=== PATIENT | female | born 1950 | race Caucasian/White ===

== ENCOUNTER → 2019-02-01 | Outpatient (CLI) | payer MEDICARE, BC ==
--- NOTE | 2019-02-01 14:22 | US ---
EXAMINATION TYPE: US thyroid st tissue head/neck DATE OF EXAM: 02/01/2019 COMPARISON: NONE CLINICAL HISTORY: 68-year-old female E04.1 THYROID NODULE. Patient states enlarged thyroid. On meds. TECHNIQUE: Multiple sonographic images of the thyroid gland are obtained. FINDINGS: GLAND SIZE: Right Lobe: 4.6 x 2.6 x 1.8 cm Overall Parenchyma: heterogenous Left Lobe: 4.8 x 2.1 x 2.1 cm Overall Parenchyma: heterogeneous Isthmus Thickness: 0.3 cm NODULES RIGHT: # of nodules measured on right: 4. Multiple nodules visualized but the largest are measured 1. 2.4 X 1.9 x 1.6 cm hypoechoic solid nodule at the mid pole with well-defined margins; interrupte d peripheral calcification. This nodule is wider than tall and shows intranodular vascularity. Prior size: No prior 2. 0.8 X 0.8 x 0.6 cm mixed nodule at the lower pole with well-defined margins. This nodule is wide r than tall and shows intranodular vascularity. Prior size: No prior 3. 0.8 X 0.9 x 0.8 cm hypoechoic solid nodule at the lower pole with well-defined margins; interrupt ed peripheral calcification. This nodule is wider than tall and shows no intranodular vascularity. Prior size: No prior 4. 0.8 X 0.7 x 0.7 cm echogenic nodule at the upper pole with well-defined margins. This nodule is wide as tall and shows intranodular vascularity. Prior size: No prior LEFT: # of nodules measured on left: 3. Multiple nodules visualized, largest measured 1. 2.0 X 1.6 x 1.7 cm hypoechoic solid nodule at the mid pole with well-defined margins. This nodu le is taller than wide and shows intranodular vascularity. Prior size: No prior 2. 1.3 X 1.1 x 1.0 cm hypoechoic solid nodule at the upper pole with well-defined margins. This no dule is wider than tall and shows intranodular vascularity. Prior size: No prior 3. 0.9 X 1.4 x 0.8 cm hypoechoic solid nodule at the lower pole with well-defined margins; interrupt ed peripheral calcification. This nodule is wider than tall and shows intranodular vascularity. Prior size: No prior ISTHMUS: # of nodules measured in the isthmus: 0 Bilateral neck scanned, no evidence of lymphadenopathy. IMPRESSION: 1. Multinodular thyroid gland, likely multinodular goiter. 2. Dominant nodule on the right measures 2.4 cm and is solid at the midpole. 3. 3 dominant nodules on the left measure 2.0 cm, 1.4 cm, and 1.3 cm.
== END | disposition home or self-care (01) ==
LOC: RADUSWWP 09:32
PROVIDERS: ATTEND Internal Medicine Endocrinology, Diabetes & Metabolism
DX: E04.2 Nontoxic multinodular goiter (principal)
CPT/HCPCS: 76536

== ENCOUNTER → 2019-02-12 | Outpatient (CLI) | payer MEDICARE, BC ==
[2019-02-12 17:39] LABS: African American GFR (CKD) 88.4 (60.0-200.0); Albumin 4.4 g/dL (3.80-4.90); Albumin/Globulin Ratio 2.59 (1.60-3.17); Anion Gap 7.9 mmol/L (4.00-12.00); BUN/Creat Ratio 33.75 Ratio (12.00-20.00); Carbon Dioxide 29.1 mmol/L (21.6-31.8); Chol/HDL Ratio 3.68; Globulin 1.7 g/dL (1.6-3.3); LDL Cholesterol,Calculated 55.8 mg/dL (0.0-131.0); Potassium 4.2 mmol/L (3.5-5.5); Total Bilirubin 0.4 mg/dL (0.2-1.2); Total Protein 6.1 g/dL (6.2-8.2); VLDL Calculation 46.2 mg/dL (5.00-40.00)
[2019-02-12 19:18] LABS: Hemoglobin A1C 7.9 % (4.0-6.0)
== END | disposition home or self-care (01) ==
LOC: LABWHC1 07:47
PROVIDERS: ATTEND Internal Medicine Endocrinology, Diabetes & Metabolism
DX: E11.65 Type 2 diabetes mellitus with hyperglycemia (principal)
CPT/HCPCS: 36415; 80053; 80061; 82043; 82570; 83036; 84443

== ENCOUNTER → 2019-06-21 | Outpatient (CLI) | payer MEDICARE, BC ==
[2019-06-21 15:29] LABS: African American GFR (CKD) 76.7 (60.0-200.0); Albumin 4.4 g/dL (3.80-4.90); Albumin/Globulin Ratio 2.1 (1.60-3.17); Anion Gap 7.2 mmol/L (4.00-12.00); Calcium 9.7 mg/dL (8.7-10.3); Carbon Dioxide 29.8 mmol/L (21.6-31.8); Chol/HDL Ratio 2.79; Globulin 2.1 g/dL (1.6-3.3); LDL Cholesterol,Calculated 59.4 mg/dL (0.0-131.0); Non-African American GFR(CKD) 66.2 (60.0-200.0); Potassium 4.9 mmol/L (3.5-5.5); Total Bilirubin 0.4 mg/dL (0.3-1.2); Total Protein 6.5 g/dL (6.2-8.2); VLDL Calculation 33.6 mg/dL (5.00-40.00)
[2019-06-21 15:38] LABS: T4, Free (Free Thyroxine) 1.7 ng/dL (0.80-1.80)
[2019-06-21 16:17] LABS: Hemoglobin A1C 7.2 % (4.0-6.0)
[2019-06-21 17:28] LABS: Urine Creatinine 79.5 mg/dL
== END | disposition home or self-care (01) ==
LOC: LABWHC1 08:02
PROVIDERS: ATTEND Internal Medicine Endocrinology, Diabetes & Metabolism
DX: E04.2 Nontoxic multinodular goiter (principal); E11.65 Type 2 diabetes mellitus with hyperglycemia
CPT/HCPCS: 36415; 80053; 80061; 82043; 82570; 83036; 84439; 84443

== ENCOUNTER → 2020-06-02 | Outpatient (CLI) | payer MEDICARE, BC ==
[2020-06-02 15:33] LABS: African American GFR (CKD) 76.1 (60.0-200.0); Albumin 4.6 g/dL (3.80-4.90); Albumin/Globulin Ratio 2.19 (1.60-3.17); BUN/Creat Ratio 25.56 Ratio (12.00-20.00); Calcium 9.3 mg/dL (8.7-10.3); Chol/HDL Ratio 2.96; Globulin 2.1 g/dL (1.6-3.3); LDL Cholesterol,Calculated 52.4 mg/dL (0.0-131.0); Non-African American GFR(CKD) 65.7 (60.0-200.0); Potassium 4.3 mmol/L (3.5-5.5); Total Bilirubin 0.5 mg/dL (0.3-1.2); Total Protein 6.7 g/dL (6.2-8.2); VLDL Calculation 43.6 mg/dL (5.00-40.00)
[2020-06-02 15:41] LABS: T4, Free (Free Thyroxine) 1.6 ng/dL (0.80-1.80)
[2020-06-02 17:53] LABS: Hemoglobin A1C 7.6 % (4.0-6.0)
[2020-06-02 21:45] LABS: Urine Creatinine 75.8 mg/dL
== END | disposition home or self-care (01) ==
LOC: LABWHC1 10:24
PROVIDERS: ATTEND Internal Medicine Endocrinology, Diabetes & Metabolism
DX: E11.65 Type 2 diabetes mellitus with hyperglycemia (principal); E04.2 Nontoxic multinodular goiter
CPT/HCPCS: 36415; 80053; 80061; 82043; 82570; 83036; 84439; 84443

== ENCOUNTER → 2020-11-16 | Outpatient (CLI) | payer MEDICARE, BC ==
[2020-11-17 01:12] LABS: Basophils # (A) 0.04 X 10*3/uL (0.00-0.10); Basophils % (A) 0.4 %; HCT 38.4 % (37.2-46.3); Lymphocytes # (A) 2.32 X 10*3/uL (0.90-5.00); MCH 29.6 pg (27.0-32.0); MCHC 31.3 g/dL (32.0-37.0); MCV 94.6 fL (80.0-97.0); Mean Platelet Volume 11.4 fL (9.5-12.2); Monocytes # (A) 0.76 X 10*3/uL (0.20-1.00); Monocytes % (A) 7.9 %; Neutrophils # (A) 6.41 X 10*3/uL (1.80-7.70); Neutrophils % (A) 66.4 %; Platelet Count 276 X 10*3/uL (140-440); RBC 4.06 X 10*6/uL (4.10-5.20); RDW 14.2 % (11.5-14.5); WBC 9.66 X 10*3/uL (4.50-10.00)
[2020-11-17 04:46] LABS: Erythrocyte Sedimentation Rate 26 mm/Hr (0-30)
== END | disposition home or self-care (01) ==
LOC: LABWHC1 15:47
PROVIDERS: ATTEND Podiatrist Foot & Ankle Surgery
DX: M19.90 Unspecified osteoarthritis, unspecified site (principal); B99.9 Unspecified infectious disease
CPT/HCPCS: 36415; 84550; 85025; 85652; 86038; 86140; 86431

== ENCOUNTER → 2021-03-14 | Outpatient (CLI) | payer MEDICARE, BC ==
[2021-03-14 19:09] LABS: ALT 16 U/L (8-44); AST 13 U/L (13-35); African American GFR (CKD) 86.9 (60.0-200.0); Albumin 4.2 g/dL (3.8-4.9); Albumin/Globulin Ratio 1.94 (1.60-3.17); Alkaline Phosphatase 63 U/L (41-126); BUN/Creat Ratio 23.57 Ratio (12.00-20.00); Blood Urea Nitrogen 18.9 mg/dL (9.0-27.0); Calcium 9.3 mg/dL (8.7-10.3); Carbon Dioxide 25.6 mmol/L (20.0-27.5); Chloride 104 mmol/L (96-109); Chol/HDL Ratio 3.37 Ratio; Globulin 2.2 g/dL (1.6-3.3); Glucose 118 mg/dL (70-110); LDL Cholesterol,Calculated 66.3 mg/dL (0.0-131.0); Sodium 140 mmol/L (135-145); Total Protein 6.3 g/dL (6.2-8.2)
[2021-03-14 23:07] LABS: Urine Creatinine 60.5 mg/dL (28.0-217.0)
== END | disposition home or self-care (01) ==
LOC: LABWHC1 10:50
PROVIDERS: ATTEND Internal Medicine Endocrinology, Diabetes & Metabolism
DX: E11.65 Type 2 diabetes mellitus with hyperglycemia (principal)
CPT/HCPCS: 36415; 80053; 80061; 82043; 82570; 83036; 84443

== ENCOUNTER → 2022-02-21 | Outpatient (CLI) | payer MEDICARE, BC ==
[2022-02-21 19:45] LABS: ALT 14 U/L (8-44); AST 15 U/L (13-35); African American GFR (CKD) 75.1 (60.0-200.0); Albumin 4.4 g/dL (3.8-4.9); Albumin/Globulin Ratio 1.76 (1.60-3.17); Alkaline Phosphatase 55 U/L (41-126); BUN/Creat Ratio 22.89 Ratio (12.00-20.00); Blood Urea Nitrogen 20.6 mg/dL (9.0-27.0); Calcium 9.8 mg/dL (8.7-10.3); Carbon Dioxide 26.5 mmol/L (20.0-27.5); Chloride 106 mmol/L (96-109); Globulin 2.5 g/dL (1.6-3.3); Glucose 81 mg/dL (70-110); LDL Cholesterol,Calculated 73.6 mg/dL (0.0-131.0); Non-African American GFR(CKD) 64.8 (60.0-200.0); Potassium 5.2 mmol/L (3.5-5.5); Sodium 141 mmol/L (135-145); Total Protein 6.9 g/dL (6.2-8.2)
[2022-02-21 22:20] LABS: Urine Creatinine 48.2 mg/dL (28.0-217.0)
== END | disposition home or self-care (01) ==
LOC: LABWHC1 10:16
PROVIDERS: ATTEND Internal Medicine Endocrinology, Diabetes & Metabolism
DX: E11.65 Type 2 diabetes mellitus with hyperglycemia (principal)
CPT/HCPCS: 36415; 80053; 80061; 82043; 82570; 83036; 84443

== ENCOUNTER → 2023-01-01 | Outpatient (CLI) | payer MEDICARE, BC ==
--- NOTE | 2023-01-01 14:33 | US ---
EXAMINATION TYPE: US thyroid st tissue head/neck DATE OF EXAM: 01/01/2023 COMPARISON: US CLINICAL INDICATION: Female, 72 years old with history of E04.2 NONTOXIC MULTINODULAR GOITER; Goiter, follow- up nodules GLAND SIZE: Right Lobe: 4.7 x 2.0 x 2.1 cm Overall Parenchyma: heterogenous Left Lobe: 5.2 x 2.3 x 2.1 cm Overall Parenchyma: heterogenous Isthmus Thickness: 0.3 cm NODULES RIGHT: # of nodules measured on right: 2 1. 2.4 X 1.6 x 1.7 cm, mid, solid or almost completely solid, isoechoic nodule, which is wider than tall, with smooth margins, peripheral calcifications . TR 4 Prior size: 2.4 x 1.6 x 1.9 cm 2. 0.8 X 0.9 x 0.8 cm, lower, solid or almost completely solid, hypoechoic nodule, which is wider t asencio tall, with smooth margins, peripheral calcifications Prior size: 0.8 x 0.9 x 0.8 cm LEFT: # of nodules measured on left: 2 1. 2.0 X 1.9 x 1.8 cm, mid, solid or almost completely solid, hypoechoic nodule, which is wider evelia n tall, with smooth margins, without echogenic foci. TR 4 Prior size: 2.0 x 1.6 x 1.7 cm 2. 1.4 X 1.2 x 0.8 cm, upper, solid or almost completely solid, hypoechoic nodule, which is wider than tall, with smooth margins, without echogenic foci. Prior size: 1.3 x 1.1 x 1.0 cm ISTHMUS: # of nodules measured in the isthmus: 0 Bilateral neck scanned, no evidence of lymphadenopathy. Innumerable nodules bilaterally, largest 2 on each side measured, appeared essentially unchanged. IMPRESSION: 1. Moderately suspicious nodule left lobe thyroid. Fine needle aspiration can be performed. 2. Moderately suspicious nodule right lobe thyroid. Fine-needle aspiration can be performed. 2017 ACR TI-RADS LEVEL: TR-RADS 4 - Moderately Suspicious: Follow if > 1 cm, FNA if > 1.5 cm *Highest TI-RADS level nodule reported
== END | disposition home or self-care (01) ==
LOC: RADUSWWP 12:04
PROVIDERS: ATTEND Internal Medicine Endocrinology, Diabetes & Metabolism
DX: E04.2 Nontoxic multinodular goiter (principal)
CPT/HCPCS: 76536

== ENCOUNTER → 2023-03-03 | Outpatient (CLI) | payer MEDICARE, BC ==
[2023-03-03 16:00] LABS: ALT 14 U/L (8-44); AST 13 U/L (13-35); Albumin 4.5 g/dL (3.8-4.9); Albumin/Globulin Ratio 1.96 Ratio (1.60-3.17); Alkaline Phosphatase 61 U/L (41-126); BUN/Creat Ratio 34.89 Ratio (12.00-20.00); Blood Urea Nitrogen 31.4 mg/dL (9.0-27.0); Calcium 9.5 mg/dL (8.7-10.3); Carbon Dioxide 22.7 mmol/L (21.6-31.8); Chloride 104 mmol/L (96-109); Chol/HDL Ratio 3.48 Ratio; Globulin 2.3 g/dL (1.6-3.3); Glucose 145 mg/dL (70-110); LDL Cholesterol,Calculated 77.8 mg/dL (0.0-131.0); Potassium 4.2 mmol/L (3.5-5.5); Sodium 139 mmol/L (135-145); Total Bilirubin 0.2 mg/dL (0.3-1.2); Total Protein 6.8 g/dL (6.2-8.2)
[2023-03-03 18:36] LABS: Microalbumin Creatinine Ratio <29 mg/g Cr (0-30); Urine Creatinine 41.5 mg/dL (28.0-217.0)
== END | disposition home or self-care (01) ==
LOC: LABWHC1 08:53
PROVIDERS: ATTEND Internal Medicine Endocrinology, Diabetes & Metabolism
DX: E11.65 Type 2 diabetes mellitus with hyperglycemia (principal)
CPT/HCPCS: 36415; 80053; 80061; 82043; 82570; 83036; 84443

== ENCOUNTER → 2023-07-21 | Outpatient (CLI) | payer MEDICARE, BC ==
[2023-07-21 16:33] LABS: ALT 16 U/L (8-44); AST 12 U/L (13-35); Albumin 4.5 g/dL (3.8-4.9); Albumin/Globulin Ratio 1.88 Ratio (1.60-3.17); Alkaline Phosphatase 59 U/L (41-126); BUN/Creat Ratio 28.11 Ratio (12.00-20.00); Blood Urea Nitrogen 25.3 mg/dL (9.0-27.0); Calcium 9.6 mg/dL (8.7-10.3); Carbon Dioxide 26.6 mmol/L (21.6-31.8); Chloride 102 mmol/L (96-109); Chol/HDL Ratio 3.49 Ratio; Globulin 2.4 g/dL (1.6-3.3); Glucose 117 mg/dL (70-110); LDL Cholesterol,Calculated 66.4 mg/dL (0.0-131.0); Potassium 4.4 mmol/L (3.5-5.5); Sodium 140 mmol/L (135-145); Total Bilirubin 0.3 mg/dL (0.3-1.2); Total Protein 6.9 g/dL (6.2-8.2)
[2023-07-21 19:15] LABS: Urine Creatinine 47.7 mg/dL (28.0-217.0)
== END | disposition home or self-care (01) ==
LOC: LABWHC1 09:30
PROVIDERS: ATTEND Internal Medicine Endocrinology, Diabetes & Metabolism
DX: E04.2 Nontoxic multinodular goiter (principal); E11.65 Type 2 diabetes mellitus with hyperglycemia
CPT/HCPCS: 36415; 80053; 80061; 82043; 82570; 83036; 84439; 84443